=== PATIENT | male | born 1990 | race African-American/Black ===

== ENCOUNTER 2022-04-12 11:54 | Emergency (ER) | payer OTHER ==
[~2022-04-12] VITALS: Ht 160 cm; Wt 89.0 kg
[2022-04-12 11:58] VITALS: BP 136/87
[2022-04-12] MEDS ORDERED: TAM75 MT (16:15)
[2022-04-12] MEDS ORDERED: AZIT250T MT (16:15)
[2022-04-12] MEDS ORDERED: IBUP-2028 MT (16:15)
== END 2022-04-12 16:45 | disposition home or self-care (01) ==
LOC: ER 11:54
DX: J18.9 Pneumonia, unspecified organism (principal)
CPT/HCPCS: 71045; 99283